=== PATIENT | female | born 1980 | race Hispanic/Latino ===

== ENCOUNTER → 2021-10-05 | Outpatient (CLI) | payer OTHER ==
[2021-10-05 13:30] LABS: ALBUMIN 3.5 g/dL (3.5-5.0); BILIRUBIN,TOTAL 0.2 mg/dL (0.2-1.0); CREATININE 0.6 mg/dL (0.5-1.5); POTASSIUM 3.3 mmol/L (3.5-5.1); THYROID STIMULATING HORMONE 0.11 uIU/mL (0.36-3.74); TOTAL PROTEIN, SERUM 7.8 g/dL (6.0-8.3)
== END | disposition home or self-care (01) ==
LOC: LAB 10:35
PROVIDERS: ATTEND Internal Medicine Gastroenterology
DX: R10.816 Epigastric abdominal tenderness (principal); R63.5 Abnormal weight gain
CPT/HCPCS: 36415; 80053; 84443